=== PATIENT | female | born 1960 | race Two or more races ===

== ENCOUNTER 2022-01-11 07:20 | Outpatient (CLI) | payer OTHER | END 2022-01-11 07:28 | disposition home or self-care (01) | LOC: SONOGRAMA 07:20 | PROVIDERS: ATTEND Obstetrics & Gynecology Gynecology | DX: N84.0 Polyp of corpus uteri (principal); D25.1 Intramural leiomyoma of uterus ==

== ENCOUNTER 2022-03-26 06:00 | Day surgery (SDC) | payer OTHER ==
[~2022-03-26] VITALS: Ht 160 cm; Wt 58.5 kg
[~2022-03-26 06:00] MED LIST: CIPRO500 MG/5 M PO; CLONAZEPAM1 MG PO; HALCION0.25 MG PO; LIPITOR20 MG PO; PAMELOR75 M1 PO; PRISTIQ ER100 MG PO; XANAX2 MG PO; ZESTRIL10 M1 PO
[2022-03-26] MEDS ORDERED: IBU600 MG PO (11:09)
== END 2022-03-26 13:05 | disposition home or self-care (01) ==
LOC: CIR.AMB 06:00
PROVIDERS: ATTEND Obstetrics & Gynecology Gynecology
DX: N84.0 Polyp of corpus uteri (principal); I10 Essential (primary) hypertension; E78.5 Hyperlipidemia, unspecified; F17.210 Nicotine dependence, cigarettes, uncomplicated; Z20.822 Contact with and (suspected) exposure to COVID-19; Z88.2 Allergy status to sulfonamides; Z88.0 Allergy status to penicillin